=== PATIENT | male | born 1960 | race Caucasian/White ===

== ENCOUNTER 2018-07-30 14:47 | Emergency (ER) | payer SELFPAY ==
[2018-07-30 15:24] VITALS: BP 149/93
[2018-07-30] MEDS ORDERED: Tetan/Diph/Pertus SYR(Tdap)* 0.5 ML SYR(BOOSTRIX) use SYR IM ONE (16:39)
[2018-07-30] MEDS ORDERED: Lidocaine 1% MPF* 2 ML VIAL INJ ONE (16:49)
[2018-07-30] MEDS ORDERED: Lidocaine 1%* 5 ML VIAL ONE (16:51)
--- NOTE | 2018-07-30 17:29 | UC ---
Hand/Wrist HPI - HPI Summary HPI Summary: 58 y.o male with laceration to L index finger while fixing appliance. + bleeding, no numbness. pain controlled. no prior injuries, pmh Htn, last tetanus 2009. - History Of Current Complaint Chief Complaint: UCLaceration Stated Complaint: FINGER LACERATION Time Seen by Provider: 07/30/18 16:39 Hx Obtained From: Patient Onset/Duration: Sudden Onset, Lasting Hours Severity Initially: Moderate Severity Currently: Moderate Pain Intensity: 1 Pain Scale Used: 0-10 Numeric - Allergies/Home Medications Allergies/Adverse Reactions: Allergies Allergy/AdvReac Type Severity Reaction Status Date / Time No Known Allergies Allergy Verified 07/30/18 15:24 Home Medications: Home Medications Lisinopril TAB* [Prinivil TAB 10 MG*] 10 mg PO DAILY 07/30/18 [History Confirmed 07/30/18] PMH/Surg Hx/FS Hx/Imm Hx Previously Healthy: Yes - HTN - Surgical History Surgical History: None - Social History Alcohol Use: None Substance Use Type: None Smoking Status (MU): Never Smoked Tobacco Review of Systems Constitutional: Negative Skin: Other - laceration l index Musculoskeletal: Edema, Other: - laceration, edema Is Patient Immunocompromised?: No All Other Systems Reviewed And Are Negative: Yes Physical Exam Triage Information Reviewed: Yes Appearance: Well-Appearing, No Pain Distress, Well-Nourished Vital Signs: Initial Vital Signs Temp 98.2 F 07/30/18 15:21 Pulse 76 07/30/18 15:21 Resp 18 07/30/18 15:21 BP 149/93 07/30/18 15:21 Pulse Ox 99 07/30/18 15:21 Musculoskeletal: Positive: Other: - ROM intact to all fingers L hand, strength equal all fingers, non-tender to palpation over DIP PIP MCp all fingers L hand, full wrist movement. irrigated well. Neurological Exam: Normal - SITLT 2nd finger tuft Psychological Exam: Normal Skin: Positive: Other - laceration to L index finger dorsal proximal, approximately 2.5 cm, linear, full thickness, no muscle/ tendon invovlement. fascia intact. Procedures - Incision and Drainage Left Proximal Finger Dorsal Site: created in error - Laceration/Wound Repair 1 Location: upper extremity - left index finger prox dorsal Description: Linear Anesthesia: Local, 1.0%, Lido Length, Depth and Shape: 2cm x 5mm x 3mm Betadine Prep?: No Irrigated w/ Saline (ccs): 500 Laceration/Wound Explored: clean, no foreign body removed Closure: Single Layer Debridement: minimal Suture Type: Nylon Number of Sutures: 8 Layer Closure?: No Sterile Dressing Applied?: Yes Hand/Wrist Course/Dx - Course Course Of Treatment: sutures placed, remove in 7-10 days, abx prescribed, follow up with PCP or urgetn care fr removal, decrease use of finger, leave bandage on x 24 hours - Differential Dx/Diagnosis Differential Diagnosis/HQI/PQRI: Contusion, Infection Provider Diagnoses: laceration left index finger with suture closure Discharge - Sign-Out/Discharge Documenting (check all that apply): Patient Departure All imaging exams completed and their final reports reviewed: No Studies - Discharge Plan Condition: Good Disposition: HOME Prescriptions: Cephalexin CAP* [Keflex CAP*] 500 mg PO TID #15 cap Patient Education Materials: Care For Your Stitches (ED), Finger Laceration (ED ) Referrals: Arley Glover MD [Primary Care Provider] - Additional Instructions: - Do not soak wound - Keep wound covered with gloves while doing work with water, chemicals - Sutures to be removed in 7-10 days, either by Primary or at urgent care - Keflex as directed - Return with redness, drainage - OK to shower, no bathing - Billing Disposition and Condition Condition: GOOD Disposition: Home
== END 2018-07-30 16:42 | disposition home or self-care (01) ==
LOC: UCEAST 14:47
DX: S61.211A Laceration without foreign body of left index finger without damage to nail, initial encounter (principal); I10 Essential (primary) hypertension; Z79.899 Other long term (current) drug therapy; X58.XXXA Exposure to other specified factors, initial encounter; Y93.9 Activity, unspecified; Y92.9 Unspecified place or not applicable
CPT/HCPCS: 12001; 90471; 90715; 99202; G0010; G0463

== ENCOUNTER 2019-07-28 17:26 | Emergency (ER) | payer OTHER ==
[2019-07-28] MEDS ORDERED: Aspirin 81 mg CHEW TAB* 81 MG TAB.CHEW PO ONE (17:33)
[2019-07-28] MEDS ORDERED: Nitroglycerin TAB 0.4 MG* 0.4 MG TAB SL ONE (17:34)
[2019-07-28] MEDS ORDERED: Nitroglycerin TAB 0.4 MG* 0.4 MG TAB ONE (17:34)
[2019-07-28] MEDS ORDERED: NS 0.9% 1000 ML** 1,000 ML BOLUS SCH (17:45)
--- NOTE | 2019-07-28 17:54 | UC ---
Cardiac HPI - HPI Summary HPI Summary: 59 yo male presents here with 15-20 min hx of substernal CP and diaphoresis onset with mild exertion no SOB no ED meds or drugs - History of Current Complaint Stated Complaint: CHEST PAIN Time Seen by Provider: 07/28/19 17:45 Hx Obtained From: Patient Onset/Duration: Sudden Onset, Lasting Minutes Timing: Constant Initial Severity: Moderate Current Severity: Moderate Pain Intensity: 6 Chest Pain Location: Mid Sternal Character: Pressure/Squeezing Aggravating Factor(s): Exertion - mild Alleviating Factor(s): Nothing Associated Signs & Symptoms: Positive: Chest Pain - Allergy/Home Medications Allergies/Adverse Reactions: Allergies Allergy/AdvReac Type Severity Reaction Status Date / Time No Known Allergies Allergy Verified 07/30/18 15:24 PMH/Surg Hx/FS Hx/Imm Hx Previously Healthy: Yes Cardiovascular History: Hypertension - Surgical History Surgical History: None - Family History Known Family History: Positive: Cardiac Disease, Hypertension - Social History Alcohol Use: None Substance Use Type: None Smoking Status (MU): Never Smoked Tobacco Review of Systems All Other Systems Reviewed And Are Negative: Yes Constitutional: Positive: Negative Skin: Positive: Negative Eyes: Positive: Negative ENT: Positive: Negative Respiratory: Positive: Negative Cardiovascular: Positive: Chest Pain Gastrointestinal: Positive: Negative Genitourinary: Positive: Negative Motor: Positive: Negative Neurovascular: Positive: Negative Musculoskeletal: Positive: Negative Neurological: Positive: Negative Psychological: Positive: Negative Physical Exam Triage Information Reviewed: Yes Appearance: Well-Appearing, No Pain Distress Vital Signs Reviewed: Yes Eyes: Positive: Conjunctiva Clear ENT: Positive: Hearing grossly normal. Negative: Nasal congestion, Nasal drainage, Trismus, Muffled voice, Hoarse voice Dental Exam: Normal Neck: Positive: Supple, Nontender, No Lymphadenopathy Respiratory: Positive: Lungs clear, Normal breath sounds, No respiratory distress Cardiovascular: Positive: RRR, No Murmur Musculoskeletal: Positive: No Edema Psychological Exam: Normal Skin Exam: Other - profusely diaphoretic Diagnostics - EKG Cardiac Rate: NL Cardiac Rhythm: Sinus: Normal, AFib: Normal, Junctional: Normal, LBBB: Normal, Other Rhythm: Normal ST Segment: Other Summary of EKG Findings: inferior-lateral STEMI - Assessment/Plan Course Of Treatment: patient given 4 baby asa BP was 140/88 on arrival despite there being possible RV involvement I ordered a SL NTG Patient was normotensive throughout his stay here two lines established d/w ED MD and STEMI team activated - Clinical Impression Provider Diagnosis: ST elevation myocardial infarction (STEMI) of inferolateral wall, initial episode of care Discharge ED - Sign-Out/Discharge Documenting (check all that apply): Patient Departure All imaging exams completed and their final reports reviewed: No Studies - Discharge Plan Condition: Critical Disposition: TRANS HIGHER LVL OF CARE FAC Referrals: Arley Glover MD [Primary Care Provider] - - Billing Disposition and Condition Condition: CRITICAL Disposition: Trans Higher Lvl of Care Fac
[2019-07-28] MEDS ORDERED: Heparin(*) 1000 UNIT/ML 10 ML VIAL CATH LAB IV ONE (18:08)
[2019-07-28] MEDS ORDERED: Midazolam* 1 MG/ML 5 ML VIAL (5 MG) ONE (18:08)
[2019-07-28] MEDS ORDERED: fentaNYL* 50 MCG/ML 2 ML VIAL (100 MCG VIAL) ONE (18:08)
[2019-07-28] MEDS ORDERED: VERAPAMIL 2.5 MG/ML 2 ML VIAL ** 5 mg/2 ml ONE (18:08)
[2019-07-28] MEDS ORDERED: Iohexol 350 (CONTRAST) 200 ML MDV IV ONE ×2 (18:09→19:10)
[2019-07-28] MEDS ORDERED: Heparin 2 UNITS/ML IVPREMIX* 3,000 ML IV ONE (18:09)
[2019-07-28] MEDS ORDERED: Lidocaine 1% INJ* 10 MG/ML 30 ML SDV ONE (18:09)
[2019-07-28] MEDS ORDERED: nitroGLYCERIN DRIP* 25,000 MCG/250 ML BTL ONE (18:09)
[2019-07-28 18:30] VITALS: BP 130/88
[2019-07-28] MEDS ORDERED: Ticagrelor* 90 MG TAB PO ONE (18:30)
[2019-07-28] MEDS ORDERED: Heparin VIAL(*) 5000 UNITS/ML VIAL (FIVE THOUSAND) ONE (18:30)
== END 2019-07-28 17:50 | disposition short-term general hospital (02) ==
LOC: UCEAST 17:26
DX: I21.19 ST elevation (STEMI) myocardial infarction involving other coronary artery of inferior wall (principal); I10 Essential (primary) hypertension
CPT/HCPCS: 93005; A9270-GY; J1644; J2250; J3010

== ENCOUNTER 2019-07-28 18:02 | Inpatient (IN) | payer OTHER ==
[2019-07-28] MEDS ORDERED: Ticagrelor* 90 MG TAB PO ONE ×2 (18:05→18:06)
[2019-07-28] MEDS: Heparin VIAL(*) 5000 UNITS/ML VIAL (FIVE THOUSAND) IV ONE ×2 (18:06→18:21)
[2019-07-28] MEDS ORDERED: Heparin for STEMI(*) 5,000 UNITS/ML 1 ML VIAL IV ONE ×2 (18:06→18:11)
--- NOTE | 2019-07-28 18:08 | ED ---
HPI Chest Pain - HPI Summary HPI Summary: This patient is a 59 year old M w hx HTN brought to [facility] by EMS with a chief complaint of chest pain since today 07/28/19 at 1715. Patient was mopping when he had acute onset L chest pressure a/w nausea, diaphoresis and L hand numbness. When symptoms did not resolve he went to where EKG show ant/lat STEMI. Dr. Calderon from called and discussed case, EKG was transmitted and STEMI called. EMS reports pt was fatigued over past month/week and has never had prior pain. EMS reports pt took 324 aspirin and 1 nitroglycerin but pain never really changed. MHx hypertension (has medication). Denies FMHx heart attack. STEMI called 1744 - History of Current Complaint Hx Obtained From: Patient, EMS Onset/Duration: Started Minutes Ago, Still Present Timing: Constant Aggravating Factor(s): Nothing Alleviating Factor(s): Nothing Associated Signs and Symptoms: Positive: Other: - fatigue - Allergy/Home Medications Allergies/Adverse Reactions: Allergies Allergy/AdvReac Type Severity Reaction Status Date / Time No Known Allergies Allergy Verified 07/30/18 15:24 PMH/Surg Hx/FS Hx/Imm Hx Cardiovascular History: Reports: Hx Hypertension - lisinopril Sensory History: Denies: Hx Legally Blind Opthamlomology History: Denies: Hx Legally Blind - Surgical History Surgery Procedure, Year, and Place: could not ask - Family History Known Family History: Positive: Cardiac Disease, Hypertension, Other - denies heart attack - Social History Alcohol Use: None Hx Substance Use: No Substance Use Type: Reports: None Hx Tobacco Use: No Smoking Status (MU): Never Smoked Tobacco Review of Systems Positive: Fatigue Positive: Chest Pain All Other Systems Reviewed And Are Negative: Yes Physical Exam - Summary Physical Exam Summary: Constitutional: Well-developed, Well-nourished, Alert. (-) Distressed Skin: Warm, Dry HENT: Normocephalic; Atraumatic Eyes: Conjunctiva normal Neck: Musculoskeletal ROM normal neck. (-) JVD, (-) Stridor, (-) Nuchal rigidity Cardio: Rhythm regular, rate normal, Heart sounds normal; Intact distal pulses; Radial pulses are 2+ and symmetric. (-) Murmur Pulmonary/Chest wall: Effort normal. (-) Respiratory distress, (-) Wheezes, (-) Rales Abd: Soft, (-) tenderness, (-) Distension, (-) Guarding, (-) Rebound Musculoskeletal: (-) Edema Lymph: (-) Cervical adenopathy Neuro: Alert, Oriented x3 Psych: Mood and affect Normal Triage Information Reviewed: Yes Vital Signs Reviewed: Yes Diagnostics - Laboratory Result Diagrams: 07/28/19 17:40 07/28/19 17:40 Lab Statement: Any lab studies that have been ordered have been reviewed, and results considered in the medical decision making process. - Radiology Chest X-Ray Radiology Interpretation Completed By: ED Physician Summary of Radiographic Findings: Per ED physician,. No acute abnormalities. Pending official report. - EKG 1803 Cardiac Rate: NL - 63 BPM Summary of EKG Findings: EKG at 1803 shows sinus rhythm at [address] elevations in 2, 3, AVG, V4, V5, v6 and depressions ins AVR and AVL. Acute [place]. 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 - s/p 324 mg aspirin w EMS and nitro SL. EKG w ST elevations in anterior/lateral leads. STEMI called FOOD COOKING MACHINE OPERATOR after review of EKG from . Patient given heparin and brillinta in ED. Dr. Jacobsen took to crime laboratory analyst. and son at bedside. - Diagnoses Provider Diagnoses: STEMI (ST elevation myocardial infarction) During the Visit The Following Alert/Code Occurred: STEMI - at 1745 Discharge ED - Sign-Out/Discharge Documenting (check all that apply): Patient Departure - admit All imaging exams completed and their final reports reviewed: Yes - Discharge Plan Condition: Stable Disposition: ADMITTED TO [facility] - Billing Disposition and Condition Condition: STABLE Disposition: Admitted to [facility] - Attestation Statements Document Initiated by Scribe: Yes Documenting Scribe: Stefanie Sherman Provider For Whom Elsy is Documenting (Include Credential): Dr. Mirian Headley MD Scribe Attestation: Stefanie Mejia, scribed for Dr. Mirian Headley MD on 07/28/19 at 2353. Scribe Documentation Reviewed: Yes Provider Attestation: The documentation as recorded by the Stefanie simental accurately reflects the service I personally performed and the decisions made by me, Dr. Mirian Headley MD Status of Scribe Document: Viewed
[2019-07-28 18:23] LABS: ABS Eosinophils 0.4 10^3/ul (0-0.6); ABS Lymphocytes 3.9 10^3/ul (1.0-4.8); ABS Monocytes 0.8 10^3/ul (0-0.8); ABS Neutrophils 5.6 10^3/ul (1.5-7.7); Eosinophil % 3.5 %; Hematocrit 41 % (42-52); Hemoglobin 13.9 g/dL (14.0-18.0); Lymphocyte % 36.6 %; Mean Corpuscular HGB Conc 34 g/dL (31-36); Mean Corpuscular Hemoglobin 30 pg (27-31); Mean Corpuscular Volume 89 fL (80-94); Mean Platelet Volume 9.3 fL (7.4-10.4); Platelet Count 273 10^3/uL (150-450); Red Blood Count 4.62 10^6 /uL (4.18-5.48); Red Cell Distribution Width 13 % (10-15); White Blood Count 10.7 10^3/uL (3.5-10.8)
[2019-07-28 18:35] LABS: Activated Partial Thrombo Time 27.1 seconds (26.0-38.0); INR 1.04 (0.82-1.09)
[2019-07-28 18:40] LABS: Albumin 4.5 g/dL (3.2-5.2); Albumin/Globulin Ratio 1.7 (1-3); BUN/Creatinine Ratio 17.6 (8-20); Calcium 9.5 mg/dL (8.6-10.3); EGFR Non-African American 62.8 (>60); Globulin 2.6 g/dL (2-4); Potassium 3.2 mmol/L (3.5-5.0); Total Bilirubin 0.4 mg/dL (0.2-1.0); Total Protein 7.1 g/dL (6.4-8.9)
[2019-07-28 18:42] LABS: Troponin I 0.02 ng/mL (<0.04)
[2019-07-28 18:44] LABS: CKMB ng/mL 3.1 ng/mL (0.6-6.3)
[2019-07-28] MEDS ORDERED: Eptifibatide IV (Load dose)(*) 2 MG/ML 10 ml VIAL ONE (19:17)
[2019-07-28] MEDS ORDERED: Bivalirudin(*) 250 MG VIAL ONE (19:34)
[2019-07-28] MEDS ORDERED: Atropine SYRINGE* 0.1 MG/ML 10 ML SYRINGE (1 MG) ONE (19:51)
[2019-07-28] MEDS ORDERED: Nitroglycerin TAB 0.4 MG* 0.4 MG TAB SL PRN (19:53)
[2019-07-28] MEDS ORDERED: Atorvastatin* 80 MG TAB PO ONE (20:02)
[2019-07-28] MEDS: NS 0.9% 1000 ML** 1,000 ML IV SCH (20:15)
[2019-07-28] MEDS ORDERED: Metoprolol Tartrate TAB* 25 MG ONE (20:58)
[2019-07-28] MEDS ORDERED: Metoprolol Tartrate TAB* 25 MG PO SCH (21:00)
[2019-07-28] MEDS ORDERED: Metoprolol Tartrate TAB* 25 MG PO ONE (21:01)
--- NOTE | 2019-07-28 22:28 | HP ---
CC: Dr. Arley Glover, [facility] * ADMISSION HISTORY AND PHYSICAL: DATE OF ADMISSION: 07/28/19 CHIEF COMPLAINT: The patient sent from [facility] after presenting with chest discomfort and an EKG documenting an ST segment elevation inferior wall myocardial infarction. HISTORY OF PRESENT ILLNESS: The patient is a 59-year-old gentleman who stated he was in usual state of health until approximately an hour to an hour and a half before presentation. 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 He was mopping floors at that time and developed a substernal chest discomfort with diaphoresis and mild nauseous and burping. He also had numbness in his left hand. He denied any shortness of breath with this. The symptoms did not go away and his took him to [facility] where an EKG was done that documented profound ST segment inferiorly with reciprocal changes in I and aVL and ST segment elevations V3 through V6. He was given aspirin and transported to [facility] Emergency Room. There, he was given a total of 5000 units of heparin in addition to 180 mg of Brilinta. When I saw him, he was still symptomatic. The risks and benefits were explained. He understood and wished to proceed. Cardiac risk factors included a history of hypertension for which he is on lisinopril 10 mg once a day. He has a history of mildly increased cholesterol according to the patient. He has no history of smoking, no diabetes. PAST MEDICAL HISTORY: Hypertension. The patient also has a history of kidney stones. CURRENT MEDICATIONS: Lisinopril 10 mg once a day. FAMILY HISTORY: His mother had a prior vascular event with a stroke. His brother has atrial fibrillation. SOCIAL HISTORY: The patient does not smoke or abuse illicit medications. REVIEW OF SYSTEMS: Pertinent to proceeding emergently to the cardiovascular laboratory - negative hematochezia, negative hematuria, negative hematemesis, no history of stroke or TIA, no history of significant renal insufficiency, and he has no contrast allergy. PHYSICAL EXAMINATION GENERAL: The patient still having ongoing chest discomfort and some mild left hand numbness. VITAL SIGNS: Blood pressure 138/94, pulse 65 and regular, respirations 18, O2 saturation 97%. NECK: Supple with no increased JVP. Carotid had no bruits. LUNGS: Chest was clear to A and P. HEART: Heart had a regular rate and rhythm. No significant systolic or diastolic murmurs. I cannot appreciate any significant heaves or thrills. ABDOMEN: Soft. EXTREMITIES: Without clubbing, cyanosis, dickson pitting edema. The peripheral pulses were intact. Femoral pulses present without bruit. NEURO: The patient was alert and oriented with normal mentation. MUSCULOSKELETAL: The patient moves all extremities appropriately. PSYCHOLOGICAL: The patient with normal affect. DIAGNOSTIC STUDIES/LAB DATA: Laboratory results are pending at the time of the emergency room evaluation as they were just being sent to the lab. EKG normal sinus rhythm. Heart rate 63. Q waves already developing to some degree inferiorly, however, with preserved R waves noted in the inferior leads with ST segment elevation present in the inferior leads and V3 through V6 with reciprocal changes in I and aVL. OVERALL ASSESSMENT: Mr. House now presents with an acute ST segment elevation inferior wall myocardial infarction. He has appropriately got an aspirin, Brilinta, and heparin and the risks and benefits were explained for emergent PCI , and he understands and wished to proceed. Further management will be made in the cardiovascular laboratory as needed. [id number]/CPS #: [id number] [facility] CENTERNathaniel
[2019-07-29] MEDS: NS 0.9% 1000 ML** 1,000 ML IV SCH (00:16)
[2019-07-29] MEDS: Ticagrelor* 90 MG TAB PO SCH ×3 (00:29→20:10)
[2019-07-29 01:19] LABS: Creatine Kinase 2466 U/L (10-223)
[2019-07-29 02:04] LABS: CKMB ng/mL 287.8 ng/mL (0.6-6.3)
[2019-07-29 02:08] LABS: Troponin I > 83.00 ng/mL (<0.04)
[2019-07-29 05:59] LABS: ABS Basophils 0.1 10^3/ul (0-0.2); ABS Lymphocytes 0.7 10^3/ul (1.0-4.8); ABS Monocytes 0.5 10^3/ul (0-0.8); ABS Neutrophils 12.1 10^3/ul (1.5-7.7); Hematocrit 38 % (42-52); Lymphocyte % 5.2 %; Mean Corpuscular HGB Conc 34 g/dL (31-36); Mean Corpuscular Hemoglobin 30 pg (27-31); Mean Corpuscular Volume 89 fL (80-94); Mean Platelet Volume 8.8 fL (7.4-10.4); Nucleated Red Blood Cells % 0.1; Platelet Count 206 10^3/uL (150-450); Red Blood Count 4.31 10^6 /uL (4.18-5.48); Red Cell Distribution Width 13 % (10-15); White Blood Count 13.4 10^3/uL (3.5-10.8)
[2019-07-29 06:20] LABS: ALT 51 U/L (7-52); AST 201 U/L (13-39); Albumin/Globulin Ratio 1.7 (1-3); Alkaline Phosphatase 68 U/L (34-104); Anion Gap 6 mmol/L (2-11); BUN/Creatinine Ratio 17.6 (8-20); Blood Urea Nitrogen 18 mg/dL (6-24); CO2 Carbon Dioxide 22 mmol/L (22-32); Calcium 8.8 mg/dL (8.6-10.3); Chloride 107 mmol/L (101-111); Cholesterol 185 mg/dL; Creatine Kinase 1880 U/L (10-223); EGFR African American 90.8 (>60); Globulin 2.3 g/dL (2-4); Glucose 134 mg/dL (70-100); HDL Cholesterol 36.9 mg/dL; LDL Cholesterol 131 mg/dL; Potassium 4.3 mmol/L (3.5-5.0); Sodium 135 mmol/L (135-145); Total Protein 6.3 g/dL (6.4-8.9); Triglycerides 87 mg/dL
[2019-07-29 06:24] LABS: CKMB ng/mL 258.3 ng/mL (0.6-6.3)
[2019-07-29 06:25] LABS: Troponin I > 83.00 ng/mL (<0.04)
[2019-07-29] MEDS ORDERED: methylPREDNISolone SOD 40 MG* 1 ML VIAL ONE (08:34)
[2019-07-29] MEDS ORDERED: Metoprolol Succinate XL TAB* 25 MG PO SCH (09:00)
--- NOTE | 2019-07-29 09:05 | PN ---
Subjective Date of Service: 07/29/19 - Inferior STEMI s/p PCI Interval History: Patient came in due to substernal left sided chest pain described as an ache with diaphoresis and tingling in bilateral hands. underwent CPI to RCA 2018. No recurrent symptoms since. No c/o chest pain, sob, dizziness. Did c/o " flutters" while sitting this morning. On telemetry he had a 6 beat count of accelerated wide complex rhythm. Per patient this pre dates [place] he remembers similar " flutters" prior. Medications Active Medications: Aspirin (Aspirin 81 Mg Chew Tab*) 81 mg PO DAILY [facility] Atorvastatin Calcium (Lipitor*) 80 mg PO 1700 [facility] Lisinopril (Prinivil Tab*) 5 mg PO DAILY [facility] Metoprolol Succinate (Toprol Xl Tab*) 25 mg PO BID [facility] Nitroglycerin (Nitroglycerin Tab 0.4 Mg*) 0.4 mg SL Q5M PRN PRN Reason: ANGINA Ticagrelor (Brilinta*) 90 mg PO BID [facility] Last Admin: 07/29/19 00:29 Dose: 90 mg Objective Vital Signs: Temp Pulse Resp BP Pulse Ox 98.9 F 68 12 132/77 97 07/29/19 04:00 07/29/19 08:00 07/29/19 08:00 07/29/19 08:00 07/29/19 08:00 Oxygen Devices in Use Now: None Appearance: sitting upright in bed, eating breakfast. NAD, A+O x3. Ears/Nose/Mouth/Throat: NL Teeth, Lips, Gums, Clear Oropharnyx, Mucous Membranes Moist Neck: NL Appearance and Movements; NL JVP, Trachea Midline Respiratory: Symmetrical Chest Expansion and Respiratory Effort, Clear to Auscultation Cardiovascular: NL Sounds; No Murmurs; No JVD, RRR, No Edema, - - right radial access site intact, no hematoma, good sensation. Abdominal: NL Sounds; No Tenderness; No Distention, No Hepatosplenomegaly Skin: No Rash or Ulcers Neurological: Alert and Oriented x 3 Lines/Tubes/Other Access: Clean, Dry and Intact Peripheral IV Laboratory Results: 07/29/19 05:45 07/29/19 05:45 INR (Anticoag Therapy) 1.04 (0.82-1.09) 07/28/19 17:40 APTT 27.1 seconds (26.0-38.0) 07/28/19 17:40 Total Bilirubin 0.50 mg/dL (0.2-1.0) 07/29/19 05:45 AST 201 U/L (13-39) H 07/29/19 05:45 ALT 51 U/L (7-52) 07/29/19 05:45 Alkaline Phosphatase 68 U/L (34-104) 07/29/19 05:45 CK-MB (CK-2) 258.3 ng/mL (0.6-6.3) H 07/29/19 05:45 B-Natriuretic Peptide 26 pg/mL (<=100) 07/28/19 17:40 Total Protein 6.3 g/dL (6.4-8.9) L 07/29/19 05:45 Albumin 4.0 g/dL (3.2-5.2) 07/29/19 05:45 Globulin 2.3 g/dL (2-4) 07/29/19 05:45 Albumin/Globulin Ratio 1.7 (1-3) 07/29/19 05:45 Triglycerides 87 mg/dL 07/29/19 05:45 Cholesterol 185 mg/dL 07/29/19 05:45 LDL Cholesterol 131 mg/dL 07/29/19 05:45 HDL Cholesterol 36.9 mg/dL 07/29/19 05:45 07/28/19 07/29/19 07/29/19 17:40 00:30 05:45 Troponin I 0.02 > 83.00 H* > 83.00 H* Laboratory Results - last 24 hr 07/28/19 07/28/19 07/28/19 17:40 17:40 17:40 WBC 10.7 RBC 4.62 Hgb 13.9 L Hct 41 L MCV 89 MCH 30 MCHC 34 RDW 13 Plt Count 273 MPV 9.3 Neut % (Auto) 52.5 Lymph % (Auto) 36.6 [place] % (Auto) 7.1 Eos % (Auto) 3.5 Baso % (Auto) 0.3 Absolute Neuts (auto) 5.6 Absolute Lymphs (auto) 3.9 Absolute Monos (auto) 0.8 Absolute Eos (auto) 0.4 Absolute Basos (auto) 0.0 Absolute Nucleated RBC 0.0 Nucleated RBC % 0.0 INR (Anticoag Therapy) 1.04 APTT 27.1 POC Activ Clotting Time Sodium 139 Potassium 3.2 L Chloride 104 Carbon Dioxide 27 Anion Gap 8 BUN 21 Creatinine 1.19 H Est GFR ( Amer) 76.0 Est GFR (Non-Af Amer) 62.8 BUN/Creatinine Ratio 17.6 Glucose 110 H Lactic Acid Calcium 9.5 Total Bilirubin 0.40 AST 18 ALT 23 Alkaline Phosphatase 72 Total Creatine Kinase 114 CK-MB (CK-2) 3.1 Troponin I 0.02 B-Natriuretic Peptide Total Protein 7.1 Albumin 4.5 Globulin 2.6 Albumin/Globulin Ratio 1.7 Triglycerides Cholesterol LDL Cholesterol LDL Cholesterol Direct 155 HDL Cholesterol 07/28/19 07/28/19 07/28/19 17:40 17:40 18:37 WBC RBC Hgb Hct MCV MCH MCHC RDW Plt Count MPV Neut % (Auto) Lymph % (Auto) [place] % (Auto) Eos % (Auto) Baso % (Auto) Absolute Neuts (auto) Absolute Lymphs (auto) Absolute Monos (auto) Absolute Eos (auto) Absolute Basos (auto) Absolute Nucleated RBC Nucleated RBC % INR (Anticoag Therapy) APTT POC Activ Clotting Time 187 Sodium Potassium Chloride Carbon Dioxide Anion Gap BUN Creatinine Est GFR ( Amer) Est GFR (Non-Af Amer) BUN/Creatinine Ratio Glucose Lactic Acid 1.9 Calcium Total Bilirubin AST ALT Alkaline Phosphatase Total Creatine Kinase CK-MB (CK-2) Troponin I B-Natriuretic Peptide 26 Total Protein Albumin Globulin Albumin/Globulin Ratio Triglycerides Cholesterol LDL Cholesterol LDL Cholesterol Direct HDL Cholesterol 07/28/19 07/29/19 07/29/19 19:20 00:30 05:45 WBC RBC Hgb Hct MCV MCH MCHC RDW Plt Count MPV Neut % (Auto) Lymph % (Auto) [place] % (Auto) Eos % (Auto) Baso % (Auto) Absolute Neuts (auto) Absolute Lymphs (auto) Absolute Monos (auto) Absolute Eos (auto) Absolute Basos (auto) Absolute Nucleated RBC Nucleated RBC % INR (Anticoag Therapy) APTT POC Activ Clotting Time 493 Sodium 135 Potassium 4.3 Chloride 107 Carbon Dioxide 22 Anion Gap 6 BUN 18 Creatinine 1.02 Est GFR ( Amer) 90.8 Est GFR (Non-Af Amer) 75.0 BUN/Creatinine Ratio 17.6 Glucose 134 H Lactic Acid Calcium 8.8 Total Bilirubin 0.50 AST 201 H ALT 51 Alkaline Phosphatase 68 Total Creatine Kinase 2466 H 1880 H CK-MB (CK-2) 287.8 H 258.3 H Troponin I > 83.00 H* > 83.00 H* B-Natriuretic Peptide Total Protein 6.3 L Albumin 4.0 Globulin 2.3 Albumin/Globulin Ratio 1.7 Triglycerides 87 Cholesterol 185 LDL Cholesterol 131 LDL Cholesterol Direct HDL Cholesterol 36.9 07/29/19 05:45 WBC 13.4 H RBC 4.31 Hgb 13.0 L Hct 38 L MCV 89 MCH 30 MCHC 34 RDW 13 Plt Count 206 MPV 8.8 Neut % (Auto) 90.4 Lymph % (Auto) 5.2 [place] % (Auto) 3.6 Eos % (Auto) 0.0 Baso % (Auto) 0.8 Absolute Neuts (auto) 12.1 H Absolute Lymphs (auto) 0.7 L Absolute Monos (auto) 0.5 Absolute Eos (auto) 0.0 Absolute Basos (auto) 0.1 Absolute Nucleated RBC 0.0 Nucleated RBC % 0.1 INR (Anticoag Therapy) APTT POC Activ Clotting Time Sodium Potassium Chloride Carbon Dioxide Anion Gap BUN Creatinine Est GFR ( Amer) Est GFR (Non-Af Amer) BUN/Creatinine Ratio Glucose Lactic Acid Calcium Total Bilirubin AST ALT Alkaline Phosphatase Total Creatine Kinase CK-MB (CK-2) Troponin I B-Natriuretic Peptide Total Protein Albumin Globulin Albumin/Globulin Ratio Triglycerides Cholesterol LDL Cholesterol LDL Cholesterol Direct HDL Cholesterol Diagnostic Imaging: [facility] 07/28/2019 per report 3.0x28mm TRICIA to proximal RCA, 3.0x38mm TRICIA to mid RCA. 3.0x8mm TRICIA inside proximal RCA stent. EKG Data: 07/29/2019; Sinus rhythm rate 73 with inferior Q waves c/w recent infarct. Telemetry reviewed; Sinus rhythm rate 80-90's. rare ventricular couplets, 6 beat run of accelerated complex tachycardia at 0630 today. Assessment/Plan #1 Inferior Stemi 07/28/2019; Troponin > 83. LV gram not done. He will need an echo likely tomorrow. s/p TRICIA to proximal and mid RCA. Underwent TRICIA within proximal RCA. On ASA 81/day, Brilinta 90mg PO BId, Lipitor 80QHS, and Toprol 25mg PO BID. No recurrent symptoms since PCI. Right radial access intact, no hematoma. Will likely transfer to 4 S telemetry later today. Has known 45-50-% LAD lesion and 60% proximal 2nd diag lesion treated medically. #2 h/o HTN; patient is currently normotensive on current regimen #3 Newly Diagnosed HLD; GOal LDL < 70 due to CAD. Now on Lipitor 80QHS. #4 elevated glucose on chemistry; Will update HgbA1C. #5 non sustained accelerated wide complex tachycardia; occured while sitting at rest. C/o " fluttering" per patient this has occurred for many years. on bblocker therapy. Will continue to monitor on telemetry. Echo to be updated. #6 Disposition pending course. Patient full code. Will d/w Dr. Jacobsen about transferring out of ICU later today and timing of echo. Attending: Martine Jacobsen
[2019-07-29] MEDS: Aspirin 81 mg CHEW TAB* 81 MG TAB.CHEW PO SCH (09:24)
[2019-07-29] MEDS: Lisinopril TAB* 5 MG PO SCH (10:50)
--- NOTE | 2019-07-29 12:42 | CATH ---
CC: Dr. Arley Glover * CARDIAC CATHETERIZATION AND INTERVENTIONAL REPORT: DATE OF PROCEDURE: 07/28/19 - ROOM #446 INDICATION FOR PROCEDURE: The patient presents with acute ST segment elevation , inferior wall myocardial infarction. PROCEDURE: Coronary arteriography, primary stenting of the proximal and mid right coronary artery utilizing a 3.0 x 28 mm Synergy drug-eluting stent proximally overlapped in the mid segment with a 3.0 x 38 mm long Synergy drug- eluting stent with placement of a last short 3.0 x 8 mm stent within the proximal portion of the proximal stent. CONSENT: The patient was interviewed and examined in the emergency room with the risks and benefits were explained. He understood them and wished to proceed. APPROACH UTILIZED: The right radial artery was assessed by ultrasound prior to starting the procedure and found to be of an acceptable caliber for an approach and as such this was the technique unitized. LABORATORY RESULTS: Pending at the time of beginning of the cardiac catheterization. EQUIPMENT UTILIZED: 1. Right radial artery sheath, a 6-B[place]raini Glidesheath slender. 2. Diagnostic guidewire with a Beyer curved 260 cm length guidewire. 3. Diagnostic coronary catheter was a TIG4 catheter 5-Bahraini catheter as well as a FL3.5 5-Bahraini catheter. 4. The interventional guide catheter was a 6-Bahraini Heartrail III IR 1.0 guide catheter. 5. The interventional wire was a 190 cm left All Star guidewire. 6. The stents utilized were a 3.0 x 28 mm, a 3.0 x 38, and a 3.0 x 8 mm long Synergy drug-eluting stents. 7. Post stent deployment balloon catheter utilized was a 3.0 x 30 mm long NC Emerge balloon and a 3.0 x 8 mm long NC Emerge balloon. 8. Thrombectomy extraction catheter utilized: A 5.5 [place]raini Pronto V4 extraction catheter. 9. The closure device utilized was a regular length Vasc Band by [employer]. MEDICATIONS GIVEN DURING THE PROCEDURE: A radial artery cocktail which included 3 mg of verapamil and 300 mcg of nitroglycerin was given. Of note, heparin was not in the radial artery cocktail as the patient received a bolus of heparin in the emergency room. 1 mg of Versed was given. Angiomax bolus and Angiomax drip was started and one 8 mL Integrilin bolus was given (the patient had already received heparin, aspirin and loading dose of Brilinta - 180 mg prior to coming to the labor relations consultant). DESCRIPTION OF PROCEDURE: The patient was brought to the cardiovascular laboratory where a formal time-out was performed. He was prepped and draped in a sterile fashion and under ultrasound guidance, the right radial artery was cannulated and the sheath was placed. Coronary arteriography was performed utilizing the TIG-4 catheter. Following this, the decision was made to intervene into the right coronary artery. ACT was checked and found to be subtherapeutic and as such an Angiomax bolus and Angiomax drip were started. Guiding views were obtained and the interventional wire was advanced down the right coronary artery and primary stenting of the proximal segment was performed. After this, it was noted that the mid portion of the right coronary artery appeared to have a dissection in its mid portion. A second stent was placed. Following this, haziness persisted in the most proximal portion of the stent and somewhat in the body within the first stent. Thrombectomy was performed to this area. Following this, because of persistent haziness, a small 8 mm length stent was deployed within the proximal stent with resolution of the haze. Additional views were taken of the left coronary artery as well. After this, the wires, catheters and sheath were removed and hemostasis was obtained with a Vasc Band. Of note, there was some swelling noted proximally to the Vasc Band suggesting potential bleeding and as such a second Vasc Band was placed more proximally and additional pressure was added to the first Vasc Band. At the end of the case, the patient had no significant chest discomfort and was stable and brought to the intensive care unit. The total contrast used was 240 cc of Omnipaque dye. The radiation exposure included 22.8 minutes of fluoro time. The air kerma radiation was 3020 milligray. The DAP radiation was 15,902 microgray per meter squared. RESULTS: CORONARY ARTERIOGRAPHY: A. Left coronary artery: 1. Left main: Widely patent. 2. Left anterior descending artery. The left anterior descending artery had a mid area noted to be approximately 45% to 50%. The second diagonal branch had a proximal area of 55% to 60%. 3. The circumflex artery supplied a thin first obtuse marginal branch with a large bifurcating mid obtuse marginal branch. There was no significant disease seen throughout the course of the circumflex with minimal luminal irregularities. B. Right coronary artery - totally occluded initially; on reconstitution it supplied a PDA and three posterior ventricular branches. There was a mild 35% narrowing noted in its proximal portion at the end of the case. There was a distal lesion prior to the PDA of 25% to 30% seen as well. INTERVENTION INTO PROXIMAL AND MID RIGHT CORONARY ARTERY: Successful reconstitution of a totally-occluded proximal right coronary artery with primary stenting utilizing a 3.0 x 28 mm long Synergy drug-eluting stent in the proximal area overlapped in the mid segment with a 3.0 x 38 mm long Synergy drug-eluting stent in the mid segment and one final short 3.0 x 8 mm stent in the proximal portion of the proximal stent with a post balloon dilatations made with high pressure balloon inflations using noncompliant balloon. 0% residual stenosis was noted. OVERALL ASSESSMENT: Successful intervention into 100% occluded proximal right coronary artery with primary stenting as well as thrombectomy and placement of three stents as described above. Moderate disease in the 2nd diagonal and mid LAD as described above which will be treated medically at this time. Aggressive dual antiplatelet therapy for 1 year's time will be pursued in addition to high- dose statin therapy. Aggressive risk factor management to be pursued with high dose statin therapy and blood pressure control. An echocardiogram will be obtained tommorrow am to assess overall LV systolic function. [id number]/[facility] [place] #: [id number] [facility]
[2019-07-29 12:48] LABS: Creatine Kinase 1649 U/L (10-223)
[2019-07-29 12:50] LABS: CKMB ng/mL 172.5 ng/mL (0.6-6.3)
[2019-07-29 12:51] LABS: Troponin I 64.71 ng/mL (<0.04)
[2019-07-29] MEDS: Metoprolol Tartrate TAB* 25 MG PO SCH ×3 (13:03→20:09)
[2019-07-29] MEDS ORDERED: Perflutren Lipid Microsphere* 3 ML VIAL ONE (13:54)
--- NOTE | 2019-07-29 16:15 | ECHO ---
*[facility]* [place] [address] Fax #: [phone] Transthoracic Echocardiogram Patient: Wallace House : 1960 Study Date: 07/29/2019 Age: 59 Gender: M HR: 69 bpm Height: 71 in /180.3 cm BSA: 2.09 m^2 Weight: 194.6 lb /88.5 kg BMI: 27.2 kg/m^2 *Tying In Machine Operator: * Ana Jacob [facility] *Referring Physician: * Uday Jacobsen MD *Reading Physician: * Miguel Apodaca MD Indications: Myocardial Infarction (new). History: Risk factors: Hypertension. Labs, prior tests, procedures, and surgery: Catheterization (07/28/2019). There was a stenosis which was treated with a stent. Conclusions Summary: - Left ventricle: Systolic function is mildly to moderately reduced. The estimated ejection fraction is 35-40%. - Regional wall motion abnormality: Severe hypokinesis of the apical inferior myocardium; moderate hypokinesis of the mid inferior myocardium; mild hypokinesis of the mid inferoseptal and basal inferior myocardium. - Right ventricle: Systolic function is normal. - Mitral valve: There is trace regurgitation. - Aortic valve: There is no evidence of stenosis. There is no significant regurgitation. - Tricuspid valve: There is trace regurgitation. - Pulmonary arteries: Systolic pressure can not be accurately estimated. - Study data: No prior study is available for comparison. Study data: Transthoracic echocardiogram. Procedure: Transthoracic echocardiography was performed. Image quality was fair. Intravenous Definity , 3 mlswas administered. Complete 2D, spectral Doppler, and color flow Doppler. Location: ICU Patient status: Inpatient. Patient room number: 5. No prior study is available for comparison. Rhythm: Normal sinus rhythm. Findings Left ventricle: The cavity size is normal. Wall thickness is mildly increased. Systolic function is mildly to moderately reduced. The estimated ejection fraction is 35-40%. Regional wall motion abnormalities: Hypokinesis of the inferior myocardium. Hypokinesis of the inferoseptal myocardium. Severe hypokinesis of the apical inferior myocardium; moderate hypokinesis of the mid inferior myocardium; mild hypokinesis of the mid inferoseptal and basal inferior myocardium. There is no consistent Doppler evidence of clinically significant diastolic dysfunction. Right ventricle: The cavity size is normal. Systolic function is normal. Left atrium: The atrium is normal in size. Right atrium: The atrium is mildly dilated. Mitral valve: The leaflets are normal thickness. There is no evidence of stenosis. There is trace regurgitation. Aortic valve: The valve is trileaflet. The leaflets are mildly thickened. There is no evidence of stenosis. There is no significant regurgitation. Tricuspid valve: The leaflets are normal thickness. There is no evidence of stenosis. There is trace regurgitation. Pulmonic valve: The leaflets are normal thickness. There is no evidence of stenosis. There is trace regurgitation. Aorta: Aortic arch: The aortic arch is mildly dilated. The aortic root appears normal. Pericardium: There is no significant pericardial effusion. Pulmonary arteries: The main pulmonary artery is normal-sized. Systolic pressure can not be accurately estimated. Systemic veins: Inferior vena cava: The vessel is normal in size. There is (< 50%) respiratory change in the IVC dimension. Measurements Left ventricle Value Ref Aortic valve Value Ref KUNAL, LAX 4.7 cm 4.2 - 5.8 Julio diam, ED 2.3 cm ---- ESD, LAX 3.8 cm 2.5 - 4.0 Peak v, S 1.21 m/sec ---- FS, LAX (L) 19 % 25 - 43 VTI, S 22.8 cm ---- PW, ED, LAX (H) 1.2 cm 0.6 - 1.0 Mean grad, S 3.0 mm Hg ---- EF (L) 40 % 52 - 72 Peak grad, S 6.0 mm Hg ---- E', lat julio, TDI (L) 7.9 cm/sec >=10.0 E/e', lat julio, 9 Mitral valve Value Ref TDI Peak E 0.74 m/sec ---- E', med julio, TDI (L) 6.8 cm/sec >=7.0 Peak A 0.88 m/sec ---- E/e', med julio, 11 Decel time 148 ms ---- TDI Peak grad, D 2.2 mm Hg ---- E', avg, TDI 7.4 cm/sec Peak E/A ratio 0.8 ---- E/e', avg, TDI 10 <=14 Pulmonic valve Value Ref LVOT Value Ref Peak v, S 0.54 m/sec ---- Peak khoi, S 0.99 m/sec Peak grad, S 1.0 mm Hg ---- Mean grad, S 2 mm Hg Aortic root Value Ref Ventricular septum Value Ref Root diam 3.1 cm <4.2 IVS, ED 1.0 cm 0.6 - 1.0 Ascending aorta Value Ref Right ventricle Value Ref AAo AP diam, S 3.3 cm ---- KUNAL, LAX 2.4 cm KUNAL minor ax, A4C 3.1 cm 1.9 - 3.5 Aortic arch Value Ref mid Arch diam 4.0 cm ---- Left atrium Value Ref Decending aorta Value Ref AP dim, ES 3.40 cm 3.00 - Sherrie peak khoi 0.72 m/sec ---- 4.00 ML dim, A4C 3.7 cm Inferior vena cava Value Ref SI dim, A4C 5.8 cm Diam 2.1 cm ---- Vol/bsa, ES, A/L 28 ml/m^2 16 - 34 Right atrium Value Ref SI dim, ES 4.8 cm 3.4 - 5.3 ML dim, ES, A4C (H) 4.5 cm 2.6 - 4.4 Estimated RAP 8 mm Hg Legend: (L) and (H) estefania values outside specified reference range. Prepared and electronically signed by Miguel Apodaca MD 07/29/2019 16:15
[2019-07-29] MEDS: Atorvastatin* 80 MG TAB PO SCH (17:20)
[2019-07-30] MEDS: Ticagrelor* 90 MG TAB PO SCH ×2 (08:35→21:13)
[2019-07-30] MEDS: Lisinopril TAB* 5 MG PO SCH (08:35)
[2019-07-30] MEDS: Metoprolol Tartrate TAB* 25 MG PO SCH (08:35)
[2019-07-30] MEDS: Aspirin 81 mg CHEW TAB* 81 MG TAB.CHEW PO SCH (08:35)
--- NOTE | 2019-07-30 09:50 | PN ---
Subjective Date of Service: 07/30/19 - Inferior STEMI Interval History: Patient came in due to substernal left sided chest pain described as an ache with diaphoresis and tingling in bilateral hands. underwent CPI to RCA 2018. No recurrent symptoms since. No c/o chest pain, sob, dizziness, palpitations since uptitration of bblocker. He has been ambulating halls with no difficulty. offers no complaints at this time. Medications Active Medications: Aspirin (Aspirin 81 Mg Chew Tab*) 81 mg PO DAILY [facility] Last Admin: 07/30/19 08:35 Dose: 81 mg Atorvastatin Calcium (Lipitor*) 80 mg PO 1700 [facility] Last Admin: 07/29/19 17:20 Dose: 80 mg Lisinopril (Prinivil Tab*) 5 mg PO DAILY [facility] Last Admin: 07/30/19 08:35 Dose: 5 mg Metoprolol Succinate (Toprol Xl Tab*) 75 mg PO DAILY [facility] Nitroglycerin (Nitroglycerin Tab 0.4 Mg*) 0.4 mg SL Q5M PRN PRN Reason: ANGINA Ticagrelor (Brilinta*) 90 mg PO BID [facility] Last Admin: 07/30/19 08:35 Dose: 90 mg Objective Vital Signs: Temp Pulse Resp BP Pulse Ox 98.9 F 80 18 120/75 96 07/30/19 07:35 07/30/19 07:35 07/30/19 07:35 07/30/19 07:35 07/30/19 07:35 Oxygen Devices in Use Now: None Appearance: sitting upright in bed, NAD, A+O x3. Ears/Nose/Mouth/Throat: NL Teeth, Lips, Gums, Clear Oropharnyx, Mucous Membranes Moist Neck: NL Appearance and Movements; NL JVP, Trachea Midline Respiratory: Symmetrical Chest Expansion and Respiratory Effort, Clear to Auscultation Cardiovascular: NL Sounds; No Murmurs; No JVD, RRR, No Edema, - - right radial access site intact, no hematoma, good sensation. Abdominal: NL Sounds; No Tenderness; No Distention, No Hepatosplenomegaly Skin: No Rash or Ulcers Neurological: Alert and Oriented x 3 Lines/Tubes/Other Access: Clean, Dry and Intact Peripheral IV Laboratory Results: 07/29/19 05:45 07/29/19 05:45 INR (Anticoag Therapy) 1.04 (0.82-1.09) 07/28/19 17:40 APTT 27.1 seconds (26.0-38.0) 07/28/19 17:40 Total Bilirubin 0.50 mg/dL (0.2-1.0) 07/29/19 05:45 AST 201 U/L (13-39) H 07/29/19 05:45 ALT 51 U/L (7-52) 07/29/19 05:45 Alkaline Phosphatase 68 U/L (34-104) 07/29/19 05:45 CK-MB (CK-2) 172.5 ng/mL (0.6-6.3) H 07/29/19 12:11 B-Natriuretic Peptide 26 pg/mL (<=100) 07/28/19 17:40 Total Protein 6.3 g/dL (6.4-8.9) L 07/29/19 05:45 Albumin 4.0 g/dL (3.2-5.2) 07/29/19 05:45 Globulin 2.3 g/dL (2-4) 07/29/19 05:45 Albumin/Globulin Ratio 1.7 (1-3) 07/29/19 05:45 Triglycerides 87 mg/dL 07/29/19 05:45 Cholesterol 185 mg/dL 07/29/19 05:45 LDL Cholesterol 131 mg/dL 07/29/19 05:45 HDL Cholesterol 36.9 mg/dL 07/29/19 05:45 07/28/19 07/29/19 07/29/19 17:40 00:30 05:45 Troponin I 0.02 > 83.00 H* > 83.00 H* 07/29/19 12:11 Troponin I 64.71 H* Laboratory Results - last 24 hr 07/29/19 07/29/19 12:11 12:11 Hemoglobin A1c 5.3 Total Creatine Kinase 1649 H CK-MB (CK-2) 172.5 H Troponin I 64.71 H* Diagnostic Imaging: Cardiac Catheterization Report CHASTITY HOUSE [id number] 07/28/19 DESCRIPTION OF PROCEDURE: The patient was brought to the cardiovascular laboratory where a formal time- out was performed. He was prepped and draped in a sterile fashion and under ultrasound guidance, the right radial artery was cannulated and the sheath was placed. Coronary arteriography was performed utilizing the TIG-4 catheter. Following this, the decision was made to intervene into the right coronary artery. ACT was checked and found to be subtherapeutic and as such an Angiomax bolus and Angiomax drip were started. Guiding views were obtained and the interventional wire was advanced down the right coronary artery and primary stenting of the proximal segment was performed. After this, it was noted that the mid portion of the right coronary artery appeared to have a dissection in its mid portion. A second stent was placed. Following this, haziness persisted in the most proximal portion of the stent and somewhat in the body within the first stent. Thrombectomy was performed to this area. Following this, because of persistent haziness, a small 8 mm length stent was deployed within the proximal stent with resolution of the haze. Additional views were taken of the left coronary artery as well. After this, the wires, catheters and sheath were removed and hemostasis was obtained with a Vasc Band. Of note, there was some swelling noted proximally to the Vasc Band suggesting potential bleeding and as such a second Vasc Band was placed more proximally and additional pressure was added to the first Vasc Band. At the end of the case, the patient had no significant chest discomfort and was stable and brought to the intensive care unit. The total contrast used was 240 cc of Omnipaque dye. The radiation exposure included 22.8 minutes of fluoro time. The air kerma radiation was 3020 milligray. The DAP radiation was 15,902 microgray per meter squared. RESULTS: CORONARY ARTERIOGRAPHY: A. Left coronary artery: 1. Left main: Widely patent. 2. Left anterior descending artery. The left anterior descending artery had a mid area noted to be approximately 45% to 50%. The second diagonal branch had a proximal area of 55% to 60%. The circumflex artery supplied a thin first obtuse marginal branch with a large bifurcating mid obtuse marginal branch. There was no significant disease seen throughout the course of the circumflex with minimal luminal irregularities. B. Right coronary artery - totally occluded initially; on reconstitution it supplied a PDA and three posterior ventricular branches. There was a mild 35% narrowing noted in its proximal portion at the end of the case. There was a distal lesion prior to the PDA of 25% to 30% seen as well. INTERVENTION INTO PROXIMAL AND MID RIGHT CORONARY ARTERY: Successful reconstitution of a totally- occluded proximal right coronary artery with primary stenting utilizing a 3.0 x 28 mm long Synergy drug-eluting stent in the proximal area overlapped in the mid segment with a 3.0 x 38 mm long Synergy drug-eluting stent in the mid segment and one final short 3.0 x 8 mm stent in the proximal portion of the proximal stent with a post balloon dilatations made with high pressure balloon inflations using noncompliant balloon. 0% residual stenosis was noted. OVERALL ASSESSMENT: Successful intervention into 100% occluded proximal right coronary artery with primary stenting as well as thrombectomy and placement of three stents as described above. Aggressive dual antiplatelet therapy for 1 year's time will be pursued in addition to high-dose statin therapy. [id number]/[facility] #: [id number] Uday Jacobsen MD Dictated Date/Time: 07/29/19 0843 This report is only to be considered final once signed by the Provider(s) as displayed in the "<Electronically Signed by >" field (s). Absence of a signature indicates the report is in a draft status and still needs to be finalized. In the event this document was created by someone other than the signing Provider, the individual initiating the document will be listed in the "Entered by:" or "Dictated by:" mae. 2 of 3 *[facility]* [place] [address] Fax #: [phone] Transthoracic Echocardiogram Patient: Chastity House : 1960 Study Date: 07/29/2019 Age: 59 Gender: M HR: 69 bpm Height: 71 in /180.3 cm BSA: 2.09 m^2 Weight: 194.6 lb /88.5 kg BMI: 27.2 kg/m^2 *Spring Assembler: * Ana Jacob [facility] *Referring Physician: * Uday Jacobsen MD *Reading Physician: * Miguel Apodaca MD Indications: Myocardial Infarction (new). History: Risk factors: Hypertension. Labs, prior tests, procedures, and surgery: Catheterization (07/28/2019). There was a stenosis which was treated with a stent. Conclusions Summary: - Left ventricle: Systolic function is mildly to moderately reduced. The estimated ejection fraction is 35-40%. - Regional wall motion abnormality: Severe hypokinesis of the apical inferior myocardium; moderate hypokinesis of the mid inferior myocardium; mild hypokinesis of the mid inferoseptal and basal inferior myocardium. - Right ventricle: Systolic function is normal. - Mitral valve: There is trace regurgitation. - Aortic valve: There is no evidence of stenosis. There is no significant regurgitation. - Tricuspid valve: There is trace regurgitation. - Pulmonary arteries: Systolic pressure can not be accurately estimated. This report is only to be considered final once signed by the Provider(s) as displayed in the "<Electronically Signed by >" field (s). Absence of a signature indicates the report is in a draft status and still needs to be finalized. In the event this document was created by someone other than the signing Provider, the individual initiating the document will be listed in the "Entered by:" or "Dictated by:" mae. EKG Data: 07/29/2019; Sinus rhythm rate 73 with inferior Q waves c/w recent infarct. 07/30/2019; sinus rhythm rate 73 with inferior Q waves, inferolateral TWI c/w recent infarct. Telemetry reviewed; Sinus rhythm rate 80-90's. rare ventricular couplets, 8 beat run of accelerated complex tachycardia 07/29/2019 at 1630. Has had ventricular couplet and triplets since but rare Assessment/Plan #1 Inferior Stemi 07/28/2019; Troponin peaked at > 83 07/29/2019 currently trending down. LV gram not done. will update echo today. s/p TRICIA to proximal and mid RCA. Underwent TRICIA within proximal RCA. On ASA 81/day, Brilinta 90mg PO BId, Lipitor 80QHS, and Lopressor 25mg PO QID. No recurrent symptoms since PCI. Right radial access intact, no hematoma. Has known 45-50-% LAD lesion and 60% proximal 2nd diag lesion treated medically. #2 h/o HTN; patient is currently normotensive on current regimen #3 Newly Diagnosed HLD; Goal LDL < 70 due to CAD. Now on Lipitor 80QHS. #4 ICM; LVEF 35-40% prior to [facility]. Will update study today. will change Lopressor to Toprol therapy, continue ACEI. Unable to start Aldactone due to BP. If LVEF < 35% will need lifevest. #5 non sustained accelerated wide complex tachycardia; occurred while sitting at rest. C/o " fluttering" per patient this has occurred for many years. on bblocker therapy which was up titrated. He had a 8 beat count on 07/29/2019 at 1630, rare couplets and triplets since. #6 Disposition pending course. Patient full code. Will d/w Dr. Jacobsen Attending: Martine Jacobsen
[2019-07-30] MEDS ORDERED: Metoprolol Succinate XL TAB* 50 MG PO SCH (12:00)
[2019-07-30] MEDS: Atorvastatin* 80 MG TAB PO SCH (18:32)
--- NOTE | 2019-07-31 10:14 | PN ---
<Pina Cazares - Last Filed: 07/31/19 10:08> Subjective Date of Service: 07/31/19 - Inferior STEMI 07/28/2019 Interval History: Patient came in due to substernal left sided chest pain described as an ache with diaphoresis and tingling in bilateral hands. underwent CPI to RCA 2018. No recurrent symptoms since. No c/o chest pain, sob, dizziness, palpitations since uptitration of bblocker. He has been ambulating halls with no difficulty. offers no complaints at this time. Medications Active Medications: Aspirin (Aspirin 81 Mg Chew Tab*) 81 mg PO DAILY [facility] Last Admin: 07/30/19 08:35 Dose: 81 mg Atorvastatin Calcium (Lipitor*) 80 mg PO 1700 [facility] Last Admin: 07/30/19 18:32 Dose: 80 mg Lisinopril (Prinivil Tab*) 5 mg PO DAILY [facility] Last Admin: 07/30/19 08:35 Dose: 5 mg Metoprolol Succinate (Toprol Xl Tab*) 100 mg PO DAILY [facility] Nitroglycerin (Nitroglycerin Tab 0.4 Mg*) 0.4 mg SL Q5M PRN PRN Reason: ANGINA Ticagrelor (Brilinta*) 90 mg PO BID [facility] Last Admin: 07/30/19 21:13 Dose: 90 mg Objective Vital Signs: Temp Pulse Resp BP Pulse Ox 97.0 F 81 18 100/77 100 07/31/19 09:21 07/31/19 09:21 07/31/19 09:21 07/31/19 09:21 07/31/19 09:21 Oxygen Devices in Use Now: None Appearance: standing at edge of bed, NAD, A+O x3. Ears/Nose/Mouth/Throat: NL Teeth, Lips, Gums, Clear Oropharnyx, Mucous Membranes Moist Neck: NL Appearance and Movements; NL JVP, Trachea Midline Respiratory: Symmetrical Chest Expansion and Respiratory Effort, Clear to Auscultation Cardiovascular: NL Sounds; No Murmurs; No JVD, RRR, No Edema, - - right radial access site intact, no hematoma, good sensation. Abdominal: NL Sounds; No Tenderness; No Distention, No Hepatosplenomegaly Skin: No Rash or Ulcers Neurological: Alert and Oriented x 3 Lines/Tubes/Other Access: Clean, Dry and Intact Peripheral IV Laboratory Results: 07/29/19 05:45 07/29/19 05:45 INR (Anticoag Therapy) 1.04 (0.82-1.09) 07/28/19 17:40 APTT 27.1 seconds (26.0-38.0) 07/28/19 17:40 Total Bilirubin 0.50 mg/dL (0.2-1.0) 07/29/19 05:45 AST 201 U/L (13-39) H 07/29/19 05:45 ALT 51 U/L (7-52) 07/29/19 05:45 Alkaline Phosphatase 68 U/L (34-104) 07/29/19 05:45 CK-MB (CK-2) 172.5 ng/mL (0.6-6.3) H 07/29/19 12:11 B-Natriuretic Peptide 26 pg/mL (<=100) 07/28/19 17:40 Total Protein 6.3 g/dL (6.4-8.9) L 07/29/19 05:45 Albumin 4.0 g/dL (3.2-5.2) 07/29/19 05:45 Globulin 2.3 g/dL (2-4) 07/29/19 05:45 Albumin/Globulin Ratio 1.7 (1-3) 07/29/19 05:45 Triglycerides 87 mg/dL 07/29/19 05:45 Cholesterol 185 mg/dL 07/29/19 05:45 LDL Cholesterol 131 mg/dL 07/29/19 05:45 HDL Cholesterol 36.9 mg/dL 07/29/19 05:45 07/28/19 07/29/19 07/29/19 17:40 00:30 05:45 Troponin I 0.02 > 83.00 H* > 83.00 H* 07/29/19 12:11 Troponin I 64.71 H* Diagnostic Imaging: Cardiac Catheterization Report CHASTITY HOUSE [id number] 07/28/19 DESCRIPTION OF PROCEDURE: The patient was brought to the cardiovascular laboratory where a formal time- out was performed. He was prepped and draped in a sterile fashion and under ultrasound guidance, the right radial artery was cannulated and the sheath was placed. Coronary arteriography was performed utilizing the TIG-4 catheter. Following this, the decision was made to intervene into the right coronary artery. ACT was checked and found to be subtherapeutic and as such an Angiomax bolus and Angiomax drip were started. Guiding views were obtained and the interventional wire was advanced down the right coronary artery and primary stenting of the proximal segment was performed. After this, it was noted that the mid portion of the right coronary artery appeared to have a dissection in its mid portion. A second stent was placed. Following this, haziness persisted in the most proximal portion of the stent and somewhat in the body within the first stent. Thrombectomy was performed to this area. Following this, because of persistent haziness, a small 8 mm length stent was deployed within the proximal stent with resolution of the haze. Additional views were taken of the left coronary artery as well. After this, the wires, catheters and sheath were removed and hemostasis was obtained with a Vasc Band. Of note, there was some swelling noted proximally to the Vasc Band suggesting potential bleeding and as such a second Vasc Band was placed more proximally and additional pressure was added to the first Vasc Band. At the end of the case, the patient had no significant chest discomfort and was stable and brought to the intensive care unit. The total contrast used was 240 cc of Omnipaque dye. The radiation exposure included 22.8 minutes of fluoro time. The air kerma radiation was 3020 milligray. The DAP radiation was 15,902 microgray per meter squared. RESULTS: CORONARY ARTERIOGRAPHY: A. Left coronary artery: 1. Left main: Widely patent. 2. Left anterior descending artery. The left anterior descending artery had a mid area noted to be approximately 45% to 50%. The second diagonal branch had a proximal area of 55% to 60%. The circumflex artery supplied a thin first obtuse marginal branch with a large bifurcating mid obtuse marginal branch. There was no significant disease seen throughout the course of the circumflex with minimal luminal irregularities. B. Right coronary artery - totally occluded initially; on reconstitution it supplied a PDA and three posterior ventricular branches. There was a mild 35% narrowing noted in its proximal portion at the end of the case. There was a distal lesion prior to the PDA of 25% to 30% seen as well. INTERVENTION INTO PROXIMAL AND MID RIGHT CORONARY ARTERY: Successful reconstitution of a totally- occluded proximal right coronary artery with primary stenting utilizing a 3.0 x 28 mm long Synergy drug-eluting stent in the proximal area overlapped in the mid segment with a 3.0 x 38 mm long Synergy drug-eluting stent in the mid segment and one final short 3.0 x 8 mm stent in the proximal portion of the proximal stent with a post balloon dilatations made with high pressure balloon inflations using noncompliant balloon. 0% residual stenosis was noted. OVERALL ASSESSMENT: Successful intervention into 100% occluded proximal right coronary artery with primary stenting as well as thrombectomy and placement of three stents as described above. Aggressive dual antiplatelet therapy for 1 year's time will be pursued in addition to high-dose statin therapy. [id number]/[facility] #: [id number] Uday Jacobsen MD Dictated Date/Time: 07/29/19 0843 This report is only to be considered final once signed by the Provider(s) as displayed in the "<Electronically Signed by >" field (s). Absence of a signature indicates the report is in a draft status and still needs to be finalized. In the event this document was created by someone other than the signing Provider, the individual initiating the document will be listed in the "Entered by:" or "Dictated by:" mae. 2 of 3 *[facility]* [place] [address] Fax #: [phone] Transthoracic Echocardiogram Patient: Chastity House : 1960 Study Date: 07/29/2019 Age: 59 Gender: M HR: 69 bpm Height: 71 in /180.3 cm BSA: 2.09 m^2 Weight: 194.6 lb /88.5 kg BMI: 27.2 kg/m^2 *Patient Access Representative: * Ana Jacob [facility] *Referring Physician: * Uday Jacobsen MD *Reading Physician: * Miguel Apodaca MD Indications: Myocardial Infarction (new). History: Risk factors: Hypertension. Labs, prior tests, procedures, and surgery: Catheterization (07/28/2019). There was a stenosis which was treated with a stent. Conclusions Summary: - Left ventricle: Systolic function is mildly to moderately reduced. The estimated ejection fraction is 35-40%. - Regional wall motion abnormality: Severe hypokinesis of the apical inferior myocardium; moderate hypokinesis of the mid inferior myocardium; mild hypokinesis of the mid inferoseptal and basal inferior myocardium. - Right ventricle: Systolic function is normal. - Mitral valve: There is trace regurgitation. - Aortic valve: There is no evidence of stenosis. There is no significant regurgitation. - Tricuspid valve: There is trace regurgitation. - Pulmonary arteries: Systolic pressure can not be accurately estimated. This report is only to be considered final once signed by the Provider(s) as displayed in the "<Electronically Signed by >" field (s). Absence of a signature indicates the report is in a draft status and still needs to be finalized. In the event this document was created by someone other than the signing Provider, the individual initiating the document will be listed in the "Entered by:" or "Dictated by:" mae. EKG Data: 07/29/2019; Sinus rhythm rate 73 with inferior Q waves c/w recent infarct. 07/30/2019; sinus rhythm rate 73 with inferior Q waves, inferolateral TWI c/w recent infarct. 07/31/2019 ECG; Sinus rhythm rate 68, inferolateral TWI c/w recent infarct. Telemetry reviewed; Sinus rhythm rate 80-90's. rare ventricular couplets, 8 beat run of accelerated complex tachycardia 07/29/2019 at 1630. Has had ventricular couplet and triplets since but rare Assessment/Plan #1 Inferior Stemi 07/28/2019; Troponin peaked at > 83 07/29/2019 currently trending down. echo 07/29/2019 LVEF 35-40%. s/p TRICIA to proximal and mid RCA. Underwent TRICIA within proximal RCA. On ASA 81/day, Brilinta 90mg PO BID, Lipitor 80QHS, and Toprol 100mg/day. No recurrent symptoms since PCI. Right radial access intact, no hematoma. Has known 45-50-% LAD lesion and 60% proximal 2nd diag lesion treated medically. Will need uninterrupted DAPT X12 month given presentation was STEMI. #2 h/o HTN; patient is currently normotensive on current regimen #3 Newly Diagnosed HLD; Goal LDL < 70 due to CAD. Now on Lipitor 80QHS. #4 ICM; LVEF 35-40% 07/29/2019 echo. Will update study today. On Toprol therapy , continue ACEI. Unable to start Aldactone due to BP. No indication for lifevest. Has not had recurrent NSVT since 07/29/2019. #5 non sustained accelerated wide complex tachycardia; occurred while sitting at rest. C/o " fluttering" per patient this has occurred for many years. on bblocker therapy which was up titrated. He had a 8 beat count on 07/29/2019 at 1630, rare couplets and triplets since. #6 Disposition pending course. Patient full code. Will d/w Dr. Jacobsen about discharging later today Attending: Martine Jacobsen <Martine Jacobsen - Last Filed: 08/01/19 15:39> Objective Vital Signs: Temp Pulse Resp BP Pulse Ox 97.5 F 73 18 117/74 95 08/01/19 07:15 08/01/19 07:15 08/01/19 08:00 08/01/19 07:15 08/01/19 07:15 Laboratory Results: 07/29/19 05:45 07/29/19 05:45 INR (Anticoag Therapy) 1.04 (0.82-1.09) 07/28/19 17:40 APTT 27.1 seconds (26.0-38.0) 07/28/19 17:40 Total Bilirubin 0.50 mg/dL (0.2-1.0) 07/29/19 05:45 AST 201 U/L (13-39) H 07/29/19 05:45 ALT 51 U/L (7-52) 07/29/19 05:45 Alkaline Phosphatase 68 U/L (34-104) 07/29/19 05:45 CK-MB (CK-2) 172.5 ng/mL (0.6-6.3) H 07/29/19 12:11 B-Natriuretic Peptide 26 pg/mL (<=100) 07/28/19 17:40 Total Protein 6.3 g/dL (6.4-8.9) L 07/29/19 05:45 Albumin 4.0 g/dL (3.2-5.2) 07/29/19 05:45 Globulin 2.3 g/dL (2-4) 07/29/19 05:45 Albumin/Globulin Ratio 1.7 (1-3) 07/29/19 05:45 Triglycerides 87 mg/dL 07/29/19 05:45 Cholesterol 185 mg/dL 07/29/19 05:45 LDL Cholesterol 131 mg/dL 07/29/19 05:45 HDL Cholesterol 36.9 mg/dL 07/29/19 05:45 07/28/19 07/29/19 07/29/19 17:40 00:30 05:45 Troponin I 0.02 > 83.00 H* > 83.00 H* 07/29/19 12:11 Troponin I 64.71 H* Assessment/Plan As above. Stable for DC. Again many good questions. DC arrangements completed.
[2019-07-31] MEDS: Lisinopril TAB* 5 MG PO SCH (11:19)
[2019-07-31] MEDS: Aspirin 81 mg CHEW TAB* 81 MG TAB.CHEW PO SCH (11:19)
[2019-07-31] MEDS: Ticagrelor* 90 MG TAB PO SCH ×2 (11:19→21:29)
[2019-07-31] MEDS: Metoprolol Succinate XL TAB* 50 MG PO SCH (11:19)
[2019-07-31] MEDS: Atorvastatin* 80 MG TAB PO SCH (16:41)
[2019-08-01 09:21] VITALS: BP 117/74
[2019-08-01] MEDS: Metoprolol Succinate XL TAB* 50 MG PO SCH (09:30)
[2019-08-01] MEDS: Ticagrelor* 90 MG TAB PO SCH (09:31)
[2019-08-01] MEDS: Lisinopril TAB* 5 MG PO SCH (09:31)
[2019-08-01] MEDS: Aspirin 81 mg CHEW TAB* 81 MG TAB.CHEW PO SCH (09:31)
--- NOTE | 2019-08-01 11:07 | DS ---
CC: Dr. Glover* DISCHARGE SUMMARY: DATE OF ADMISSION: 07/28/19 DATE OF DISCHARGE: 08/01/19 ATTENDING PHYSICIAN: Dr. Martine Jacobsen, Interventional Cardiology.* (DICTATED BY GAURAV ALVAREZ NP) PRIMARY PHYSICIAN: Dr. Glover. ADMITTING DIAGNOSES: 1. Acute inferior ST elevation myocardial infarction. 2. History of hypertension. 3. Newly found coronary disease. 4. Newly found hyperlipidemia. DISCHARGE DIAGNOSES: 1. Acute inferior ST segment elevation myocardial infarction, status post drug - eluting stent to proximal and mid right coronary artery with subsequent stenting to the proximal portion of the proximal stent. The patient is on aspirin, Brilinta, statin, and beta-blockade therapy. He will go home with a free 30-day supply of Brilinta. 2. Ischemic cardiomyopathy. LVEF 35% to 40% based on 07/29/19 echocardiogram. The patient is euvolemic on physical examination, on metoprolol 100 mg a day and lisinopril 5 mg a day. Unable to start Aldactone therapy given blood pressure. 3. History of hypertension. The patient is currently normotensive, on current medication therapy. 4. History of hyperlipidemia. LDL this admission was 131, goal LDL is less than 70 given newly found coronary disease on high intensity statin therapy. He will need repeat fasting lipid panel and liver function test in 6 to 8 weeks ' time. 5. Nonsustained wide complex ventricular rhythm. The patient has had no reoccurrence since 07/29/19. He has had rare PVCs and couplets. PROCEDURES PERFORMED: The patient underwent an emergent left heart catheterization by Dr. Uday Jacobsen on 07/28/19. Per report, a 6-[place] Glidesheath catheter was inserted to the right radial artery. Per report, 1. Left main; widely patent. 2. LAD; mild area noted to be 45% to 50% stenosis in the mid portion. Second diag branch had 55% to 60% stenosis. 3. Left circumflex; supplies thin first obtuse marginal branch with large bifurcating mid obtuse marginal branch. There was no significant disease seen throughout the course of the left circumflex with minimal luminal irregularities. 4. Right coronary artery; totally occluded initially. On reconstitution, it supplied a PDA and 3 posterior ventricular branches. There was mild 35% narrowing involving the proximal portion at the end of the case. There was a distal lesion prior to the PDA of 25% to 30% seen as well. INTERVENTIONS PERFORMED: The patient underwent successful reconstitution of a totally occluded proximal right coronary artery with primary stenting utilizing a 3.0 x 28 mm long drug-eluting stent in the proximal area overlapped in the mid segment with 3.0 x 38 mm drug-eluting stent in the mid segment and one final short 3.0 x 8 mm stent in the proximal portion of the proximal stent with post-balloon dilatations made with high pressure balloon inflations using noncompliant balloon. No residual re-stenosis was noted. COMPLICATIONS: None. COURSE OF HOSPITAL STAY: This is a pleasant 59-year-old male patient with a notable history of hypertension, who presented to [facility] on 07/28 due to complaints of chest pain. Apparently, he presented to [facility] initially where an ECG was obtained and showed an acute inferior wall ST segment elevation, thus he was transferred to [facility]. According to the clinical documentation, he had noted substernal chest discomfort with associated nausea and diaphoresis and numbness in the left hand. He was seen emergently by Dr. Uday Jacobsen while in the emergency room and decision was made for urgent left heart catheterization due to acute inferior wall ST segment elevation. The patient was loaded with Brilinta therapy in addition to heparin. He underwent the above mentioned procedure. Post procedure, he was transferred to the ICU. On telemetry, he had nonsustained accelerated wide complex tachycardia on 07/29/19. He reported fluttering at that time. Beta- yumiko was optimized. He has had rare couplets and triplets since then, but no nonsustained VT. Echocardiogram was updated on 07/29/19. Per report, LVEF was 35% to 40% with moderate hypokinesis of the mid inferior myocardium and mild hypokinesis of the mid inferoseptal and basal inferior myocardium. There was trace mitral insufficiency. He has been euvolemic throughout his hospital stay. Elevated fasting glucose was noted, thus hemoglobin A1c was updated and was 5.3% on 07/29/19. Troponin peaked at greater than 83 on 07/29/19, has been trending down. LDL was noted to be 131 during the stay. He has been stable and asymptomatic and ambulating without any difficulty. He will be going home today. His right radial access site was examined. There is no evidence of hematoma, nontender to palpation, strong palpable radial pulse palpated bilaterally and symmetrically. Cap refill less than 3 seconds. I did personally speak to his pharmacist at [facility] who states that the patient's out- of-pocket expense for Brilinta is $300 a month, thus I have asked our office ( medical office building) to put aside Brilinta samples for the patient. The patient will need uninterrupted dual-antiplatelet therapy for a minimum of 12 months given presentation with STEMI. After 12 months, we will calculate his personal dual- antiplatelet therapy score, and if indicated, continue DAPT therapy extended to 36 months. We will address this in followup. His medications have been optimized and we are unable to add Aldactone to his regimen due to his blood pressure. He is otherwise stable and doing well. FOLLOWUP APPOINTMENTS: 1. The patient will need to see a primary physician, Dr. Glover in 7 to [address] Uday Jacobsen on 08/07/19 at 3 p.m. at our medical office building. He was instructed to bring his medication bottles with him. 3. Outpatient blood work. The patient will need repeat fasting lipid panel and liver function test in 6 to 8 weeks' time due to initiation of high- intensity statin therapy. ACTIVITY RESTRICTIONS: Given presentation with STEMI, the patient was advised not to drive or lift anything more than 5 to 10 pounds until further directed in followup which we will address on 08/07/19. Referral for cardiac rehab was placed, this will need to be addressed in followup. I stressed the importance of compliance with medications. He is aware not to take more than aspirin 81 mg a day in combination with Brilinta due to reduced efficacy with higher doses of aspirin in combination with Brilinta. The patient was sent home with a free 30-day supply of Brilinta. Dr. Martine Jacobsen has personally seen and examined the patient and agrees with the above assessment and plan. GAURAV ALVAREZ, EMELIA [id number]/[facility] #: [id number] EL
== END 2019-08-01 11:50 | disposition home or self-care (01) | DRG 174 ==
LOC: ED 18:02 → CHICATH 18:27 → ICU 20:03 → MEDTELE 07-29 15:30
PROVIDERS: ADMIT Internal Medicine Cardiovascular Disease; ATTEND Internal Medicine Cardiovascular Disease
PROC: 02C03ZZ Extirpation of Matter from Coronary Artery, One Artery, Percutaneous Approach (ICD-10-PCS; 2019-07-28)
PROC: B2111ZZ Fluoroscopy of Multiple Coronary Arteries using Low Osmolar Contrast (ICD-10-PCS; 2019-07-28)
PROC: 027035Z Dilation of Coronary Artery, One Artery with Two Drug-eluting Intraluminal Devices, Percutaneous Approach (ICD-10-PCS; principal; 2019-07-28 17:00)
DX: I21.19 ST elevation (STEMI) myocardial infarction involving other coronary artery of inferior wall (principal); I47.1 Supraventricular tachycardia; I10 Essential (primary) hypertension; E78.5 Hyperlipidemia, unspecified; E78.00 Pure hypercholesterolemia, unspecified; I25.10 Atherosclerotic heart disease of native coronary artery without angina pectoris; I25.5 Ischemic cardiomyopathy; R73.09 Other abnormal glucose; I34.0 Nonrheumatic mitral (valve) insufficiency; Z79.02 Long term (current) use of antithrombotics/antiplatelets; Z82.3 Family history of stroke
CPT/HCPCS: 36415; 71045; 76937; 80053; 80061; 82550; 82553; 83036; 83605; 83721; 83880; 84484; 85025; 85347; 85610; 85730; 87641; 93005; 93306; 99156; 99157; 99285; A9270-GY; C1725; C1757; C1769; C1876; C8929; C9606-RC; J0461; J0583; J1327; J1644; J2920

== ENCOUNTER 2022-02-18 10:26 | Inpatient (IN) ==
[2022-02-18 12:08] LABS: ABS Lymphocytes 1.5 10^3/ul (1.0-4.8); ABS Monocytes 1.9 10^3/ul (0-0.8); ABS Neutrophils 12.6 10^3/ul (1.5-7.7); Eosinophil % 0.2 %; Hematocrit 47 % (42-52); Hemoglobin 16.3 g/dL (14.0-18.0); Lymphocyte % 9.1 %; Mean Corpuscular HGB Conc 35 g/dL (31-36); Mean Corpuscular Hemoglobin 30 pg (27-31); Mean Corpuscular Volume 87 fL (80-94); Mean Platelet Volume 8.4 fL (7.4-10.4); Platelet Count 340 10^3/uL (150-450); Red Blood Count 5.36 10^6 /uL (4.18-5.48); Red Cell Distribution Width 13 % (10-15); White Blood Count 16.1 10^3/uL (3.5-10.8)
[2022-02-18 12:22] LABS: Activated Partial Thrombo Time 25.2 seconds (26.0-38.0); INR 1.17 (0.86-1.15)
[2022-02-18 12:33] LABS: ALT 23 U/L (7-52); Albumin 4.1 g/dL (3.2-5.2); Albumin/Globulin Ratio 1.6 (1-3); Alkaline Phosphatase 101 U/L (35-149); Blood Urea Nitrogen 22 mg/dL (6-24); CO2 Carbon Dioxide 25 mmol/L (22-32); Calcium 9.4 mg/dL (8.6-10.3); Chloride 85 mmol/L (101-111); Globulin 2.5 g/dL (2-4); Glucose 86 mg/dL (70-100); Magnesium 2.2 mg/dL (1.9-2.7); Total Protein 6.6 g/dL (6.4-8.9); eGFR CKD-EPI 67.2 (>60)
[2022-02-18 12:43] LABS: Anion Gap 7 mmol/L (2-11); Sodium 117 mmol/L (135-145)
[2022-02-18 12:47] LABS: TSH Ultra Thyroid Stim Horm 0.66 mcIU/mL (0.34-5.60)
[2022-02-18 14:16] LABS: Urine Creatinine Concentration 82.33 mg/dL; Urine Sodium Concentration < 18 mmol/L
[2022-02-18 14:17] LABS: Potassium Redraw 2.7 mmol/L (3.5-5.0)
[2022-02-18 14:18] LABS: Urine Appearance Cloudy; Urine Bilirubin Negative (Negative); Urine Blood 2+ (Negative); Urine Color Yellow; Urine Glucose Negative (Negative); Urine Ketones Negative (Negative); Urine Nitrite Negative (Negative); Urine Protein Negative (Negative); Urine Specific Gravity 1.009 (1.002-1.030); Urine Urobilinogen Negative (Negative)
[2022-02-18 14:38] LABS: Urine Bacteria Absent (Absent); Urine Red Blood Cell Trace(0-2/hpf) (Absent); Urine White Blood Cell Absent (Absent)
[2022-02-18 14:58] LABS: Urine Osmo 319 mOsm/kg (150-1150)
[2022-02-18] MEDS ORDERED: Potassium Chloride LIQUID 20 MEQ/15 ML LIQUID PO ONE (15:09)
[2022-02-18] MEDS ORDERED: NS 0.9% 1000 ml BAG 1,000 ML IV SCH ×2 (15:45→17:00)
[2022-02-18] MEDS ORDERED: KCL 20 MEQ/100 ML IVPREMIX 20 MEQ/100 ML BAG IV SCH (16:00)
[2022-02-18] MEDS ORDERED: NS 0.9% 500 ml BAG 500 ML IV ONE (16:09)
[2022-02-18 16:30] LABS: Osmolality Serum 260 mOsm/kg (275-295)
[2022-02-18 18:26] LABS: Calcium 9.5 mg/dL (8.6-10.3); Potassium 4.3 mmol/L (3.5-5.0); eGFR CKD-EPI 65.9 (>60)
[2022-02-18] MEDS: Artificial Tear OPHTH.OINT 3.5 GM LEFT EYE SCH (21:08)
[2022-02-18 23:49] LABS: Calcium 8.7 mg/dL (8.6-10.3); Potassium 3.6 mmol/L (3.5-5.0); eGFR CKD-EPI 62.9 (>60)
[2022-02-19 09:08] LABS: Hematocrit 43 % (42-52); Hemoglobin 14.9 g/dL (14.0-18.0); Mean Corpuscular HGB Conc 35 g/dL (31-36); Mean Corpuscular Hemoglobin 31 pg (27-31); Mean Corpuscular Volume 88 fL (80-94); Mean Platelet Volume 8.3 fL (7.4-10.4); Platelet Count 295 10^3/uL (150-450); Red Cell Distribution Width 13 % (10-15); White Blood Count 14.5 10^3/uL (3.5-10.8)
[2022-02-19 10:17] LABS: Calcium 8.6 mg/dL (8.6-10.3); Potassium 3.7 mmol/L (3.5-5.0); eGFR CKD-EPI 72.1 (>60)
[2022-02-19] MEDS ORDERED: Potassium Chloride LIQUID 20 MEQ/15 ML LIQUID PO ONE ×2 (13:53→23:18)
[2022-02-19] MEDS ORDERED: NS 0.9% 1000 ml BAG 1,000 ML IV SCH (14:00)
[2022-02-19 20:23] LABS: Potassium 3.8 mmol/L (3.5-5.0)
[2022-02-19] MEDS: Artificial Tear OPHTH.OINT 3.5 GM LEFT EYE SCH (20:29)
[2022-02-19] MEDS ORDERED: Enoxaparin 40 MG/0.4 ML SYR SUBCUT SCH (21:00)
[2022-02-20 07:05] LABS: Potassium 4.4 mmol/L (3.5-5.0); eGFR CKD-EPI 69.9 (>60)
[2022-02-20 07:36] VITALS: BP 143/77
[2022-02-20 09:55] LABS: Calcium 8.5 mg/dL (8.6-10.3)
== END 2022-02-20 11:50 | disposition home or self-care (01) | DRG 422 ==
LOC: ED 10:26 → EDHOLD 15:21 → MEDTELE 16:59
PROVIDERS: ADMIT Internal Medicine; ATTEND Internal Medicine